=== PATIENT | female | born 1965 | race Caucasian/White ===

== ENCOUNTER 2018-07-18 19:05 | Emergency (ER) | payer BC, OTHER ==
[~2018-07-18] VITALS: Ht 160 cm; Wt 98.9 kg
[~2018-07-18 19:05] MED LIST: AVELOX400 MG PO; AZITHROMYCIN PO; PAXIL; PHENERGAN-CODE120 ML PO; PREDNISONE 10 M10 M1 PO; TESSALON200 MG PO; VENTOLIN HFA INH8 GM IH
[2018-07-18] MEDS ORDERED: ZOLOFT50 MG PO (19:08)
[2018-07-18] MEDS ORDERED: CARVEDILOL3.125 MG PO (19:08)
[2018-07-18] MEDS ORDERED: MAGOX 400400 MG PO (19:16)
[2018-07-18] MEDS ORDERED: BACTRIM DS TAB1 EACH PO (19:19)
[2018-07-18 19:29] VITALS: BP 137/68
== END 2018-07-18 19:30 | disposition home or self-care (01) ==
LOC: M.ERS 19:05
DX: R59.0 Localized enlarged lymph nodes (principal); F41.9 Anxiety disorder, unspecified; F32.9 Major depressive disorder, single episode, unspecified

== ENCOUNTER 2021-05-20 15:22 | Emergency (ER) | payer BC, OTHER ==
[~2021-05-20] VITALS: Ht 157.5 cm; Wt 101.2 kg
[~2021-05-20 15:22] MED LIST changes: +BACTRIM DS TAB1 EACH PO; +CARVEDILOL3.125 MG PO; +MAGOX 400400 MG PO; -PAXIL; +PAXIL 20 MG TAB20 M1 PO; +ZOLOFT50 MG PO
[2021-05-20 15:50] LABS: URINE BILIRUBIN NEGATIVE (Negative); URINE BLOOD NEGATIVE (Negative); URINE CLARITY CLEAR; URINE COLOR YELLOW; URINE GLUCOSE-RANDOM NEGATIVE (Negative); URINE KETONES TRACE (Negative); URINE LEUKOCYTES-REFLEX TRACE (Negative); URINE NITRITE-REFLEX NEGATIVE (Negative); URINE PROTEIN NEGATIVE (Negative); URINE UROBILINOGEN 0.2 E.U./dl (0.2-1.0)
[2021-05-20 15:56] LABS: BACTERIA-REFLEX 1-9 Few /HPF (None Seen); SQUAMOUS 0-3 Few /LPF (0-3); URINE RBC 0-2 Rare /HPF (0-2); URINE WBC-REFLEX 0-5 Rare /HPF (0-5)
[2021-05-20 15:57] LABS: CRYSTALS None Seen /LPF (None Seen)
[2021-05-20 15:58] LABS: CASTS None Seen /LPF (None Seen)
[2021-05-20 15:58] LABS: ABSOLUTE LYMPHOCYTES 1.2 thou/uL (0.8-5.3); ABSOLUTE MONOCYTES 0.5 thou/uL (0.0-1.2); ABSOLUTE NEUTROPHILS 4.2 thou/uL (1.6-8.1); BASOPHILS 0.7 %; EOSINOPHILS 0.3 %; HEMATOCRIT 40.2 % (37.0-47.0); HEMOGLOBIN 14.3 gm/dL (12.0-15.0); LYMPHOCYTES 19.8 %; MCH 30.3 pg (26.0-34.0); MCHC 35.4 g/dL (28.0-37.0); MCV 85.4 fL (80.0-100.0); MONOCYTES 8.8 %; MPV 6.9 fl. (7.2-11.1); NUCLEATED RBCS 0 /100WBC; PLATELET COUNT* 262 thou/uL (150-400); POLYS 70.4 %; RBC 4.71 mil/uL (4.20-5.00); RDW-CV 12.2 % (10.5-14.5)
[2021-05-20 16:06] LABS: CALCIUM 9.4 mg/dL (8.5-10.1); CREATININE 0.7 mg/dL (0.6-1.3); POTASSIUM 3.6 mmol/L (3.5-5.1)
[2021-05-20 16:11] LABS: ALBUMIN 3.8 g/dL (3.4-5.0); TOTAL BILIRUBIN 0.3 mg/dL (<0.1-1.0); TOTAL PROTEIN 7.4 g/dL (6.4-8.2)
[2021-05-20] MEDS ORDERED: CEPHALEXIN500 MG PO (17:04)
[2021-05-20] MEDS ORDERED: PEPCID20 MG PO (17:04)
[2021-05-20] MEDS ORDERED: ONDANSETRON ODT4 MG PO (17:04)
[2021-05-20 17:49] VITALS: BP 152/65
== END 2021-05-20 17:50 | disposition home or self-care (01) ==
LOC: M.ERS 15:22
PROVIDERS: Physician Assistant
DX: N39.0 Urinary tract infection, site not specified (principal); Z88.8 Allergy status to other drugs, medicaments and biological substances